=== PATIENT | male | born 1985 | race Caucasian/White ===

== ENCOUNTER → 2019-03-31 | Outpatient (CLI) | payer OTHER ==
--- NOTE | 2019-03-31 09:51 | XR ---
EXAMINATION TYPE: XR hand complete RT DATE OF EXAM: 03/31/2019 CLINICAL HISTORY: pain TECHNIQUE: Frontal, lateral and oblique images of the right hand are obtained. COMPARISON: None. FINDINGS: There is no acute fracture/dislocation evident. The joint spaces appear within normal limi ts. The overlying soft tissue appears unremarkable. IMPRESSION: There is no acute fracture or dislocation ICD 10 NO FRACTURE, INITIAL EVALUATION
--- NOTE | 2019-03-31 09:52 | XR ---
EXAMINATION TYPE: XR forearm RT DATE OF EXAM: 03/31/2019 CLINICAL HISTORY: pain TECHNIQUE: Frontal and lateral images of the right forearm are obtained. COMPARISON: None. FINDINGS: There is no acute fracture/dislocation evident. There is ununited fracture chronic in natu re involving the medial humeral condyle. The joint spaces appear within normal limits. The overlying soft tissue appears unremarkable. IMPRESSION: There is no acute fracture or dislocation. ICD 10 NO FRACTURE, INITIAL EVALUATION
== END ==
LOC: RADXRMAIN 09:13
PROVIDERS: ATTEND Emergency Medicine
DX: S50.11XA Contusion of right forearm, initial encounter (principal); S60.221A Contusion of right hand, initial encounter

== ENCOUNTER 2023-05-09 20:49 | Emergency (ER) | payer OTHER ==
[2023-05-09 20:54] VITALS: BP 133/77; PULSE 93; RESP 20; TEMP 98
[2023-05-09] MEDS ORDERED: FAMOTIDINE 20 MG TAB PO STA (21:12)
[2023-05-09] MEDS ORDERED: hydrOXYzine HCL 50 MG/ML 1 ML VIAL IM STA (21:12)
--- NOTE | 2023-05-09 21:29 | ED ---
General Adult HPI - General Chief complaint: Allergic Reaction Stated complaint: Red bumps all over Time Seen by Provider: 05/09/23 20:55 Source: patient, RN notes reviewed Mode of arrival: ambulatory Limitations: no limitations - History of Present Illness Initial comments: 38-year-old male resents to the emergency department chief complaint of rash th at started yesterday. He went to urgent care at that time and was given a single dose of steroids, Benadryl. He states that it started on his forearms and has progressed to his chest and back. He reports that it is very itchy. He has applied calamine lotion which does not help. He has also tried oatmeal baths which helps for the time being. He reports following this the rash is continuing to worsen. He is unaware of any new exposures. He denies any new medications, soaps, detergents. Denies any difficulty breathing, shortness of breath, swelling of his lips, tongue, nausea, vomiting. - Related Data Home Medications Medication Instructions Recorded Confirmed Dextroamphetamine/Amphetamine 25 mg PO DAILY 12/03/15 12/03/15 [Adderall] Oseltamivir Phosphate [Tamiflu] 30 mg PO DAILY 12/03/15 12/03/15 Previous Rx's Medication Instructions Recorded Albuterol Inhaler [Ventolin Hfa 1 - 2 puff INHALATION Q6HR #1 12/03/15 Inhaler] inhaler Azithromycin [Zithromax Z-pack (6 0 mg PO DIRECTED #1 pack 12/03/15 tabs)] Naproxen [Naprosyn] 500 mg PO Q12HR #60 tab 12/03/15 Famotidine 40 mg PO DAILY #7 tablet 05/09/23 diphenhydrAMINE & Zinc Cream 1 applic TOPICAL BID #28 gm 05/09/23 [Benadryl Cream] diphenhydrAMINE [Benadryl] 25 mg PO QID PRN #20 capsule 05/09/23 predniSONE [Deltasone] 40 mg PO DAILY #10 tab 05/09/23 Allergies Allergy/AdvReac Type Severity Reaction Status Date / Time No Known Allergies Allergy Verified 12/03/15 00:19 Review of Systems ROS Statement: Those systems with pertinent positive or pertinent negative responses have been documented in the HPI. ROS Other: All systems not noted in ROS Statement are negative. Past Medical History Past Medical History: No Reported History History of Any Multi-Drug Resistant Organisms: None Reported Past Surgical History: No Surgical Hx Reported Past Psychological History: No Psychological Hx Reported, ADD/ADHD Past Alcohol Use History: Occasional Past Drug Use History: None Reported General Exam Limitations: no limitations General appearance: alert, in no apparent distress Head exam: Present: atraumatic, normocephalic, normal inspection Eye exam: Present: normal appearance ENT exam: Present: normal exam, mucous membranes moist Neck exam: Present: normal inspection. Absent: tenderness, meningismus, lymphadenopathy Respiratory exam: Present: normal lung sounds bilaterally. Absent: respiratory distress, wheezes, rales, rhonchi, stridor Cardiovascular Exam: Present: regular rate, normal rhythm, normal heart sounds. Absent: systolic murmur, diastolic murmur, rubs, gallop, clicks GI/Abdominal exam: Present: soft, normal bowel sounds. Absent: distended, tenderness, guarding, rebound, rigid Extremities exam: Present: normal inspection, full ROM, normal capillary refill. Absent: tenderness, pedal edema, joint swelling, calf tenderness Back exam: Present: normal inspection Neurological exam: Present: alert, oriented X3 Psychiatric exam: Present: normal affect, normal mood Skin exam: Present: warm, dry, rash, urticaria Course Vital Signs 05/09/23 20:50 Temperature 98 F Pulse Rate 93 Respiratory 20 Rate Blood Pressure 133/77 O2 Sat by Pulse 98 Oximetry Medical Decision Making - Medical Decision Making Was pt. sent in by a medical professional or institution (STACEY Galo, CHORUS MASTER, urgent care, hospital, or fci...) When possible be specific @ -No Did you speak to anyone other than the patient for history (EMS, parent, family, police, friend...)? What history was obtained from this source @ -No Did you review nursing and triage notes (agree or disagree)? Why? @ -I reviewed and agree with nursing and triage notes Were old charts reviewed (outside hosp., previous admission, EMS record, old EKG, old radiological studies, urgent care reports/EKG's, fci records)? Report findings @ -No old charts were reviewed Differential Diagnosis (chest pain, altered mental status, abdominal pain women, abdominal pain men, vaginal bleeding, weakness, fever, dyspnea, syncope, he adache, dizziness, GI bleed, back pain, seizure, CVA, palpatations, mental health, musculoskeletal)? @ -urticaria, atopic dermatitis, contact dermatitis, this list is not all inc lusive EKG interpreted by me (3pts min.). @ -none X-rays interpreted by me (1pt min.). @ -None done CT interpreted by me (1pt min.). @ -None done U/S interpreted by me (1pt. min.). @ -None done What testing was considered but not performed or refused? (CT, X-rays, U/S, labs)? Why? @ -None What meds were considered but not given or refused? Why? @ -None Did you discuss the management of the patient with other professionals (professionals i.e. , PA, CHORUS MASTER, lab, RT, psych nurse, social worker psychiatric, reading assistant, teacher, chief digital officer, dependency case manager)? Give summary @ -No Was smoking cessation discussed for >3mins.? @ -No Was critical care preformed (if so, how long)? @ -No Were there social determinants of health that impacted care today? How? (Homelessness, low income, unemployed, alcoholism, drug addiction, transportation, low edu. Level, literacy, decrease access to med. care, prison, rehab)? @ -No Was there de-escalation of care discussed even if they declined (Discuss DNR or withdrawal of care, Hospice)? DNR status @ -No What co-morbidities impacted this encounter? (DM, HTN, Smoking, COPD, CAD, Cancer, CVA, ARF, Chemo, Hep., AIDS, mental health diagnosis, sleep apnea, morbid obesity)? @ -None Was patient admitted / discharged? Hospital course, mention meds given and route, prescriptions, significant lab abnormalities, going to OR and other pertinent info. @ -Discharge. Patient is in the emergency department chief complaint of rash that started yesterday. He reports it is pruritic. He went to urgent care yesterday and was given a dose of Benadryl, a dose of steroids that he is unsure of the name of. He was not sent a prescription for any steroids. The rash appears urticarial in nature. Patient has been hearing seen this rash since last night and is at low risk for progression. Is not having any difficulty breathing, no wheezing. Lungs clear to auscultation. Patient given a dose of Pepcid and I am hydroxyzine to help with the itching. Prescription was in the patient's pharmacy for prednisone 40 mg for 5 days, Benadryl, Pepcid. He is advised to take his medicines as prescribed and to return to the emergency department for new symptoms. Patient stable at time of discharge. Case discussed with my attending, Dr. Theodore. Undiagnosed new problem with uncertain prognosis? @ -No Drug Therapy requiring intensive monitoring for toxicity (Heparin, Nitro, Insulin, Cardizem)? @ -No Were any procedures done? @ -No Diagnosis/symptom? @ -urticaria Acute, or Chronic, or Acute on Chronic? @ -acute Uncomplicated (without systemic symptoms) or Complicated (systemic symptoms)? @ -uncomplicated Side effects of treatment? @ -No Exacerbation, Progression, or Severe Exacerbation? @ -No Poses a threat to life or bodily function? How? (Chest pain, [place], PR, pneumonia, PE, COPD, DKA, ARF, appy, cholecystitis, CVA, Diverticulitis, Homicidal, Suicidal, threat to staff... and all critical care pts) @ -No Disposition Clinical Impression: Allergic reaction Disposition: HOME SELF-CARE Condition: Stable Instructions (If sedation given, give patient instructions): General Allergic Reaction (ED) Additional Instructions: Please pickup your medications from the pharmacy and take as directed. Follow up with your primary care provider. Return to the emergency department for new or worsening symptoms. Prescriptions: diphenhydrAMINE [Benadryl] 25 mg PO QID PRN #20 capsule PRN Reason: Itching diphenhydrAMINE & Zinc Cream [Benadryl Cream] 1 applic TOPICAL BID #28 gm predniSONE [Deltasone] 40 mg PO DAILY #10 tab Famotidine 40 mg PO DAILY #7 tablet Is patient prescribed a controlled substance at d/c from ED?: No Referrals: Jayden Gibbs MD [Primary Care Provider] - 1-2 days
== END 2023-05-09 21:40 | disposition home or self-care (01) ==
LOC: EC 20:49
DX: R21 Rash and other nonspecific skin eruption (principal); T45.0X5A Adverse effect of antiallergic and antiemetic drugs, initial encounter
CPT/HCPCS: 99283; 96372; J3410

== ENCOUNTER 2023-08-27 23:18 | Emergency (ER) | payer OTHER ==
[2023-08-27 23:43] VITALS: TEMP 98.1
--- NOTE | 2023-08-28 02:44 | XR ---
EXAM: XR Soft Tissue Neck CLINICAL HISTORY: XR Reason: throat pain, FB sensation TECHNIQUE: Frontal and lateral views of the soft tissues of the neck. COMPARISON: No relevant prior studies available. FINDINGS: Airway: Unremarkable. No abnormal narrowing. Bones/joints: Unremarkable. No acute fracture. Soft tissues: Unremarkable. No abnormal soft tissue prominence. Normal epiglottis. IMPRESSION: Normal neck x-rays.
[2023-08-28] MEDS ORDERED: DEXAMETHASONE SOD PHOSPHATE 10 MG/ML 1 ML VIAL IM STA (02:58)
--- NOTE | 2023-08-28 02:58 | ED ---
ENT HPI - General Chief complaint: ENT Stated complaint: Throat pain Time Seen by Provider: 08/28/23 00:05 Source: patient Mode of arrival: ambulatory Limitations: no limitations - History of Present Illness Initial comments: 38-year-old male presenting with chief complaint of sore throat. Sore throat has been ongoing for several days. Patient states that it feels like there is something stuck in his throat. Patient has been eating and drinking normally. He is having no difficulty breathing or swallowing. No fevers or chills. No voice changes. No drooling. No nausea or vomiting. - Related Data Home Medications Medication Instructions Recorded Confirmed Dextroamphetamine/Amphetamine 25 mg PO DAILY 12/03/15 12/03/15 [Adderall] Oseltamivir Phosphate [Tamiflu] 30 mg PO DAILY 12/03/15 12/03/15 Previous Rx's Medication Instructions Recorded Albuterol Inhaler [Ventolin Hfa 1 - 2 puff INHALATION Q6HR #1 12/03/15 Inhaler] inhaler Azithromycin [Zithromax Z-pack (6 0 mg PO DIRECTED #1 pack 12/03/15 tabs)] Naproxen [Naprosyn] 500 mg PO Q12HR #60 tab 12/03/15 Famotidine 40 mg PO DAILY #7 tablet 05/09/23 diphenhydrAMINE & Zinc Cream 1 applic TOPICAL BID #28 gm 05/09/23 [Benadryl Cream] diphenhydrAMINE [Benadryl] 25 mg PO QID PRN #20 capsule 05/09/23 predniSONE [Deltasone] 40 mg PO DAILY #10 tab 05/09/23 Allergies Allergy/AdvReac Type Severity Reaction Status Date / Time No Known Allergies Allergy Verified 08/27/23 23:34 Review of Systems ROS Statement: Those systems with pertinent positive or pertinent negative responses have been documented in the HPI. ROS Other: All systems not noted in ROS Statement are negative. Past Medical History Past Medical History: No Reported History History of Any Multi-Drug Resistant Organisms: None Reported Past Surgical History: No Surgical Hx Reported Past Psychological History: No Psychological Hx Reported, ADD/ADHD Smoking Status: Never smoker Past Alcohol Use History: Occasional Past Drug Use History: None Reported General Exam Limitations: no limitations General appearance: alert, in no apparent distress Head exam: Present: atraumatic, normocephalic, normal inspection Eye exam: Present: normal appearance, EOMI Expanded Mouth exam: Present: normal external inspection, tongue normal. Absent: drooling, trismus, muffled voice Throat exam: normal inspection. negative: R peritonsillar mass, L peritonsillar mass Neck exam: Present: normal inspection, full ROM Respiratory exam: Absent: respiratory distress Neurological exam: Present: alert, oriented X3 Psychiatric exam: Present: normal affect, normal mood Skin exam: Present: warm, dry, intact, normal color. Absent: rash Course Vital Signs 08/27/23 08/28/23 23:29 03:13 Temperature 98.1 F Pulse Rate 79 75 Respiratory 17 18 Rate Blood Pressure 116/75 136/82 O2 Sat by Pulse 95 98 Oximetry Medical Decision Making - Medical Decision Making Was pt. sent in by a medical professional or institution (Dr. PA, EDI PROGRAMMER ANALYST, urgent care, hospital, or assisted...) When possible be specific @ -No Did you speak to anyone other than the patient for history (EMS, parent, family, police, friend...)? What history was obtained from this source @ -No Did you review nursing and triage notes (agree or disagree)? Why? @ -I reviewed and agree with nursing and triage notes Were old charts reviewed (outside hosp., previous admission, EMS record, old EKG, old radiological studies, urgent care reports/EKG's, assisted records)? Report findings @ -No old charts were reviewed Differential Diagnosis (chest pain, altered mental status, abdominal pain women, abdominal pain men, vaginal bleeding, weakness, fever, dyspnea, syncope, headache, dizziness, GI bleed, back pain, seizure, CVA, palpatations, mental health, musculoskeletal)? @ -Differential includes pharyngitis, foreign body, epiglottitis, peritonsillar abscess, malignancy, this is not an all inclusive list EKG interpreted by me (3pts min.). @ -As above X-rays interpreted by me (1pt min.). @ -Soft tissue neck x-ray shows no acute process CT interpreted by me (1pt min.). @ -None done U/S interpreted by me (1pt. min.). @ -None done What testing was considered but not performed or refused? (CT, X-rays, U/S, labs)? Why? @ -None What meds were considered but not given or refused? Why? @ -None Did you discuss the management of the patient with other professionals (professionals i.e. , PA, EDI PROGRAMMER ANALYST, lab, RT, psych nurse, social service liaison, pole incisor operator, teacher, general service officer, case management manager)? Give summary @ -No Was smoking cessation discussed for >3mins.? @ -No Was critical care preformed (if so, how long)? @ -No Were there social determinants of health that impacted care today? How? (Homelessness, low income, unemployed, alcoholism, drug addiction, transportation, low edu. Level, literacy, decrease access to med. care, group home, rehab)? @ -No Was there de-escalation of care discussed even if they declined (Discuss DNR or withdrawal of care, Hospice)? DNR status @ -No What co-morbidities impacted this encounter? (DM, HTN, Smoking, COPD, CAD, Cancer, CVA, ARF, Chemo, Hep., AIDS, mental health diagnosis, sleep apnea, morbid obesity)? @ -None Was patient admitted / discharged? Hospital course, mention meds given and route, prescriptions, significant lab abnormalities, going to OR and other pertinent info. @ -38-year-old male presenting with chief complaint of sore throat. Symptoms have been ongoing for several days. History and physical exam is conducted. Immediately following patient asks for something to eat and drink. He is negative for group A strep. Negative soft tissue neck x-ray. He is showing no signs of respiratory distress, no drooling or trismus, no hot potato voice. On exam there is no midline shift or evidence of peritonsillar mass. No fevers or vomiting. Patient was given a dose of Decadron. Educated on supportive management and alarm symptoms that should prompt reevaluation. Follow-up with PCP. Report back to ER with any new or worsening symptoms. Discussed return parameters and answered all questions. Patient conveyed verbal understanding and agreed to the plan. I discussed this case in detail with my attending Dr. Bui Undiagnosed new problem with uncertain prognosis? @ -No Drug Therapy requiring intensive monitoring for toxicity (Heparin, Nitro, Insulin, Cardizem)? @ -No Were any procedures done? @ -No Diagnosis/symptom? @ -Pharyngitis Acute, or Chronic, or Acute on Chronic? @ -Acute Uncomplicated (without systemic symptoms) or Complicated (systemic symptoms)? @ -Uncomplicated Side effects of treatment? @ -No Exacerbation, Progression, or Severe Exacerbation? @ -No - Lab Data Lab Results 08/27/23 Range/Units 23:35 Group A Strep (PCR) NOT DETECTED (Not Detectd) Disposition Clinical Impression: Acute viral pharyngitis Disposition: HOME SELF-CARE Condition: Good Instructions (If sedation given, give patient instructions): Pharyngitis (ED) Additional Instructions: Follow-up with PCP. Report back to ER with any new or worsening symptoms. Is patient prescribed a controlled substance at d/c from ED?: No Referrals: Jayden Gibbs MD [Primary Care Provider] - 1-2 days Time of Disposition: 02:58
[2023-08-28 03:38] VITALS: BP 136/82; PULSE 75; RESP 18
== END 2023-08-28 03:14 | disposition home or self-care (01) ==
LOC: EC 23:18
DX: J02.8 Acute pharyngitis due to other specified organisms (principal)
CPT/HCPCS: 87651; 70360; 99283; 96372; J1100

== ENCOUNTER 2023-08-29 13:23 | Emergency (ER) | payer BC, OTHER ==
[2023-08-29 13:45] VITALS: TEMP 98.4
--- NOTE | 2023-08-29 13:58 | ED ---
ENT HPI <Darrell Lau Noy - Last Filed: 08/29/23 18:38> - General Source: patient, RN notes reviewed Mode of arrival: ambulatory Limitations: no limitations <Emilia Todd - Last Filed: 08/29/23 19:38> - General Chief complaint: ENT Stated complaint: throat pain Time Seen by Provider: 08/29/23 13:58 - History of Present Illness Initial comments: 38-year-old male presented ER with chief complaint of sore throat and difficulty swallowing/breathing. Patient was seen here on Wednesday with similar complaint and he received a steroid. He reports that it has only gotten worse. Patient states he is now having difficulty talking and swallowing. He states he's been having to spit into a bucket because he is unable to handle his secretions. He denies any fevers, chills, night sweats, recent URIs, dental infections, chest pain, shortness of breath. (Emilia Todd) - Related Data Home Medications Medication Instructions Recorded Confirmed Dextroamphetamine/Amphetamine 25 mg PO DAILY 12/03/15 12/03/15 [Adderall] Oseltamivir Phosphate [Tamiflu] 30 mg PO DAILY 12/03/15 12/03/15 Previous Rx's Medication Instructions Recorded Albuterol Inhaler [Ventolin Hfa 1 - 2 puff INHALATION Q6HR #1 12/03/15 Inhaler] inhaler Azithromycin [Zithromax Z-pack (6 0 mg PO DIRECTED #1 pack 12/03/15 tabs)] Naproxen [Naprosyn] 500 mg PO Q12HR #60 tab 12/03/15 Famotidine 40 mg PO DAILY #7 tablet 05/09/23 diphenhydrAMINE & Zinc Cream 1 applic TOPICAL BID #28 gm 05/09/23 [Benadryl Cream] diphenhydrAMINE [Benadryl] 25 mg PO QID PRN #20 capsule 05/09/23 predniSONE [Deltasone] 40 mg PO DAILY #10 tab 05/09/23 Amoxic-Pot Clav 875-125Mg 1 tab PO Q12HR #20 tab 08/29/23 [Augmentin 875-125] Amoxic-Pot Clav 875-125Mg 1 tab PO Q12HR 10 Days #20 tab 11/26/23 [Augmentin 875-125] dexAMETHasone [Decadron] 0 mg PO DIRECTED #12 tab 08/29/23 dexAMETHasone [Decadron] 0.75 mg PO DAILY #12 tab 08/29/23 Allergies Allergy/AdvReac Type Severity Reaction Status Date / Time No Known Allergies Allergy Verified 08/29/23 13:34 Review of Systems ROS Other: All systems not noted in ROS Statement are negative. <Darrell Lau - Last Filed: 08/29/23 18:38> ROS Other: All systems not noted in ROS Statement are negative. <Emilia Todd - Last Filed: 08/29/23 19:38> ROS Statement: Those systems with pertinent positive or pertinent negative responses have been documented in the HPI. Past Medical History Past Medical History: No Reported History History of Any Multi-Drug Resistant Organisms: None Reported Past Surgical History: No Surgical Hx Reported Past Psychological History: No Psychological Hx Reported, ADD/ADHD Smoking Status: Never smoker Past Alcohol Use History: Occasional Past Drug Use History: None Reported <Emilia Todd - Last Filed: 08/29/23 19:38> General Exam Limitations: no limitations General appearance: alert, in no apparent distress Head exam: Present: atraumatic, normocephalic, normal inspection Eye exam: Present: normal appearance, PERRL, EOMI. Absent: scleral icterus, conjunctival injection, periorbital swelling ENT exam: Present: TM's normal bilaterally, other (Limited mouth exam due to patient unable to open his mouth due to pain.) Neck exam: Present: tenderness (Tenderness superior to hyoid bone) Respiratory exam: Present: normal lung sounds bilaterally. Absent: respiratory distress, wheezes, rales, rhonchi, stridor Cardiovascular Exam: Present: regular rate, normal rhythm, normal heart sounds. Absent: systolic murmur, diastolic murmur, rubs, gallop, clicks Neurological exam: Present: alert, oriented X3, CN II-XII intact Psychiatric exam: Present: normal affect, normal mood <Emilia Todd - Last Filed: 08/29/23 19:38> Course <Darrell Lau - Last Filed: 08/29/23 18:38> Vital Signs 08/29/23 13:32 Temperature 98.4 F Pulse Rate 85 Respiratory 20 Rate Blood Pressure 115/75 O2 Sat by Pulse 99 Oximetry - Reevaluation(s) Reevaluation #1: 08/29/23 18:[address] Christopher who does recommend Augmentin twice daily for 10 days and Decadron taper. Patient will start this medication tomorrow and follow-up as an outpatient. (Darrell Lau) Procedures - Incision & Drainage Consent Obtained: verbal consent Indication: Peritonsillar abscess Site: oral Amount (mLs): 2 Sterile Field Used?: No Ultrasound used: No Needle Aspiration Performed?: Yes Irrigation Performed?: No I&D Drainage Obtained: Blood Insertion of drain: No Culture Obtained?: No Complications: other (No purulent fluid obtained) Patient Tolerated Procedure: well <Darrell Lau - Last Filed: 08/29/23 18:38> Medical Decision Making - Lab Data Result diagrams: 08/29/23 16:23 08/29/23 16:23 <Darrell Lau - Last Filed: 08/29/23 18:38> - Lab Data Result diagrams: 08/29/23 16:23 08/29/23 16:23 - Radiology Data Radiology results: report reviewed, image reviewed <Emilia Todd - Last Filed: 08/29/23 19:38> - Medical Decision Making Was pt. sent in by a medical professional or institution (STACE[facility] Galo, FORGING ROLL OPERATOR, urgent care, hospital, or senior living...) When possible be specific @ -No Did you speak to anyone other than the patient for history (EMS, parent, family, police, friend...)? What history was obtained from this source @ -No Did you review nursing and triage notes (agree or disagree)? Why? @ -I reviewed and agree with nursing and triage notes Were old charts reviewed (outside hosp., previous admission, EMS record, old EKG, old radiological studies, urgent care reports/EKG's, senior living records)? Report findings @ -Yes I reviewed old charts from 08/27/23. Patient was swabbed for strep which was negative and neck x-ray was negative. Patient received a dose of Decadron and was discharged. Differential Diagnosis (chest pain, altered mental status, abdominal pain women, abdominal pain men, vaginal bleeding, weakness, fever, dyspnea, syncope, headache, dizziness, GI bleed, back pain, seizure, CVA, palpatations, mental health, musculoskeletal)? @ -Differential Fever: Pneumonia, viral URI, endocarditis, myocarditis, pericarditis, otitis, sinusitis, peritonsillar Abscess, retropharyngeal Abscess, epiglottitis, peritonitis, appendicitis, Lupe cystitis, diverticulitis, hepatitis, colitis, UTI, PID, TOA, pyelonephritis, prostatitis, epididymitis, meningitis, encephalitis, pulmonary embolism, CVA, thyroid storm, pancreatitis, adrenal crisis, cavernous sinus thrombosis, this is not meant to be an all- inclusive list. EKG interpreted by me (3pts min.). @ -None X-rays interpreted by me (1pt min.). @ -None done CT interpreted by me (1pt min.). @ -CT of soft tissue neck showed soft tissue inflammation involving the right palatine tonsils. Findings were consistent with a 1.71.51.3 cm peritonsillar abscess on the right. There is edema of the soft tissues adjacent to the peritonsillar abscess. There was edema of the soft tissues next to the abscess which could represent a developing retropharyngeal effusion. There is multiple mildly enlarged lymph nodes of the right neck. Airway is patent. Polypoid mucosal thickening in the left more than the right maxillary sinus. U/S interpreted by me (1pt. min.). @ -None done What testing was considered but not performed or refused? (CT, X-rays, U/S, labs)? Why? @ -None What meds were considered but not given or refused? Why? @ -None Did you discuss the management of the patient with other professionals (professionals i.e. , PA, FORGING ROLL OPERATOR, lab, RT, psych nurse, dialysis social worker, project engineering manager, teacher, correctional officer chief, egg caser)? Give summary @ -Yes, this case was discussed with Dr. Christopher who advised on outpatient follow-up. He wanted the patient started on Augmentin and decadron. Was smoking cessation discussed for >3mins.? @ -No Was critical care preformed (if so, how long)? @ -No Were there social determinants of health that impacted care today? How? (Homelessness, low income, unemployed, alcoholism, drug addiction, transportation, low edu. Level, literacy, decrease access to med. care, snf, rehab)? @ -No Was there de-escalation of care discussed even if they declined (Discuss DNR or withdrawal of care, Hospice)? DNR status @ -No What co-morbidities impacted this encounter? (DM, HTN, Smoking, COPD, CAD, Cancer, CVA, ARF, Chemo, Hep., AIDS, mental health diagnosis, sleep apnea, morbid obesity)? @ -None Was patient admitted / discharged? Hospital course, mention meds given and route, prescriptions, significant lab abnormalities, going to OR and other pertinent info. @ -Discharge. Patient's vital signs were stable upon examination. Patient was complaining of right-sided throat pain with difficulty swallowing and handling his secretions. He was talking with a hot potato voice as well. Labs obtained in the ER were significant for a white blood cell count of 11.1. CT of soft tissue neck showed soft tissue inflammation involving the right palatine tonsils. Findings were consistent with a 1.71.51.3 cm peritonsillar abscess on the right. There is edema of the soft tissues adjacent to the peritonsillar abscess. There was edema of the soft tissues next to the abscess which could represent a developing retropharyngeal effusion. There is multiple mildly enlarged lymph nodes of the right neck. Airway is patent. Polypoid mucosal thickening in the left more than right maxillary sinus. Patient received PO motrin for pain control in the ER. Prior to attempted I &D of abscess patient was given IV decadron 10 mg and 3g Unasyn. Dr. Lau attempted to drain the abscess which was unsuccessful. Dr. Lau spoke with Dr. Christopher from ENT who advised outpatient follow-up. Patient was started on Augmentin and Decadron and discharge. I discussed at length return parameters with the patient. I advised him to follow-up with ENT in the next 24-48 hours and to return to ER if symptoms worsen. Patient will be discharged in stable condition with follow-up to PCP and ENT. Patient expressed understanding and agreement with care plan. Undiagnosed new problem with uncertain prognosis? @ -No Drug Therapy requiring intensive monitoring for toxicity (Heparin, Nitro, Insulin, Cardizem)? @ -No Were any procedures done? @ -Yes Diagnosis/symptom? @ -Peritonsillar abscess Acute, or Chronic, or Acute on Chronic? @ -Acute Uncomplicated (without systemic symptoms) or Complicated (systemic symptoms)? @ -Complicated Side effects of treatment? @ -No Exacerbation, Progression, or Severe Exacerbation? @ -No Poses a threat to life or bodily function? How? (Chest pain, [place], [place], pneumonia, PE, COPD, DKA, ARF, appy, cholecystitis, CVA, Diverticulitis, Homicidal, Suicidal, threat to staff... and all critical care pts) @ -Possibly (Emilia Todd) - Lab Data Lab Results 08/29/23 08/29/23 08/29/23 Range/Units 16:23 16: 16: WBC 11.1 H (3.8-10.6) k/uL RBC 4.81 (4.30-5.90) m/uL Hgb 14.6 (13.0-17.5) gm/dL Hct 42.4 (39.0-53.0) % MCV 88.1 (80.0-100.0) fL MCH 30.4 (25.0-35.0) pg MCHC 34.4 (31.0-37.0) g/dL RDW 13.1 (11.5-15.5) % Plt Count 193 (150-450) k/uL MPV 8.0 Neutrophils % 70 % Lymphocytes % 20 % Monocytes % 7 % Eosinophils % 1 % Basophils % 0 % Neutrophils # 7.8 H (1.3-7.7) k/uL Lymphocytes # 2.3 (1.0-4.8) k/uL Monocytes # 0.8 (0-1.0) k/uL Eosinophils # 0.1 (0-0.7) k/uL Basophils # 0.0 (0-0.2) k/uL Sodium 139 (137-145) mmol/L Potassium 3.7 (3.5-5.1) mmol/L Chloride 98 (98-107) mmol/L Carbon Dioxide 30 (22-30) mmol/L Anion Gap 11 mmol/L BUN 9 (9-20) mg/dL Creatinine 0.82 (0.66-1.25) mg/dL Est GFR (CKD-EPI)AfAm >90 (>60 ml/min/1.73 sqM) Est GFR (CKD-EPI)NonAf >90 (>60 ml/min/1.73 sqM) Glucose 90 (74-99) mg/dL Plasma Lactic Acid [place] 1.1 (0.7-2.0) mmol/L Calcium 8.9 (8.4-10.2) mg/dL Total Bilirubin 0.4 (0.2-1.3) mg/dL AST 48 (17-59) U/L ALT 69 H (4-49) U/L Alkaline Phosphatase 139 H (38-126) U/L Total Protein 7.1 (6.3-8.2) g/dL Albumin 4.2 (3.5-5.0) g/dL Disposition Is patient prescribed a controlled substance at d/c from ED?: No Time of Disposition: 18:43 <Darrell Lau - Last Filed: 08/29/23 18:38> <Emilia Todd - Last Filed: 08/29/23 19:38> Clinical Impression: Peritonsillar abscess Disposition: HOME SELF-CARE Condition: Good Instructions (If sedation given, give patient instructions): Peritonsillar Abscess (ED) Additional Instructions: Please monitor symptoms closely and return with worsening or changing symptoms. Prescriptions: Amoxic-Pot Clav 875-125Mg [Augmentin 875-125] 1 tab PO Q12HR #20 tab Amoxic-Pot Clav 875-125Mg [Augmentin 875-125] 1 tab PO Q12HR 10 Days #20 tab dexAMETHasone [Decadron] 0 mg PO DIRECTED #12 tab dexAMETHasone [Decadron] 0.75 mg PO DAILY #12 tab Referrals: Jayden Gibbs MD [Primary Care Provider] - 1-2 days Sukumar Christopher MD [STAFF PHYSICIAN] - 1-2 days
[2023-08-29 16:34] LABS: Basophils % (A) 0 %; Eosinophils # (A) 0.1 k/uL (0-0.7); Eosinophils % (A) 1 %; HCT 42.4 % (39.0-53.0); HGB 14.6 gm/dL (13.0-17.5); Lymphocytes # (A) 2.3 k/uL (1.0-4.8); Lymphocytes % (A) 20 %; MCH 30.4 pg (25.0-35.0); MCHC 34.4 g/dL (31.0-37.0); MCV 88.1 fL (80.0-100.0); Monocytes # (A) 0.8 k/uL (0-1.0); Monocytes % (A) 7 %; Neutrophils # (A) 7.8 k/uL (1.3-7.7); Neutrophils % (A) 70 %; Platelet Count 193 k/uL (150-450); RBC 4.81 m/uL (4.30-5.90); RDW 13.1 % (11.5-15.5); WBC 11.1 k/uL (3.8-10.6)
[2023-08-29 16:47] LABS: ALT 69 U/L (4-49); AST 48 U/L (17-59); African American GFR (CKD) >90 (>60 ml/min/1.73 sqM); Albumin 4.2 g/dL (3.5-5.0); Alkaline Phosphatase 139 U/L (38-126); Anion Gap 11 mmol/L; Blood Urea Nitrogen 9 mg/dL (9-20); Calcium 8.9 mg/dL (8.4-10.2); Carbon Dioxide 30 mmol/L (22-30); Chloride 98 mmol/L (98-107); Glucose 90 mg/dL (74-99); Non-African American GFR(CKD) >90 (>60 ml/min/1.73 sqM); Potassium 3.7 mmol/L (3.5-5.1); Sodium 139 mmol/L (137-145); Total Bilirubin 0.4 mg/dL (0.2-1.3); Total Protein 7.1 g/dL (6.3-8.2)
[2023-08-29] MEDS ORDERED: IBUPROFEN 600 MG TAB PO STA (17:40)
--- NOTE | 2023-08-29 17:43 | CT ---
EXAMINATION TYPE: CT soft tissue neck w con CT DLP: 327.1 mGycm, Automated exposure control for dose reduction was used. DATE OF EXAM: 08/29/2023 3:46 PM COMPARISON: Soft tissue neck x-rays 08/28/2023. CLINICAL INDICATION:Male, 38 years old with history of pain; PHH, Sore throat and neck pressure x 4 d ays. TECHNIQUE: Standard enhanced CT of the neck. Axial sections with coronal and sagittal reformats were obtained. Contrast used:100 cc mL of Isovue 300 with IV Contrast, Oral contrast used: none. FINDINGS: Brain: Visualized portions are grossly unremarkable. Orbits: Unremarkable Sinuses: Polypoid mucosal thickening in the left more than right maxillary sinus. Mild nasal septal d eviation to the left. Spaces of the neck: Soft tissue inflammation involving the right more than left palatine tonsils. On the right there is a hypodense fluid collection with irregular surrounding enhancing rim measuring 1. 7 cm craniocaudal, 1.5 cm AP and 1.3 cm transverse consistent with peritonsillar abscess. There is ed mena of the adjacent soft tissues and some vague low attenuation in the right retropharyngeal region w hich could represent developing retropharyngeal effusion. Musculoskeletal: No acute osseous abnormality. Lymph nodes: Multiple nonenlarged and some enlarged nodes are seen within the carotid chains bilatera lly, largest node seen is on the right level 2 measuring 1.7 x 1.2 cm. Vascular structures: Major arteries in the neck and internal jugular veins are patent and nondisplace d. Thoracic Inlet/airway: The airway remains patent, however there is the effacement of the vallecula on the right which appears due to the inflammatory changes. Epiglottis itself does not appear particula rly inflamed. Soft tissues/Thyroid: Thyroid and remainder of the soft tissues are unremarkable. Other: Included lung apices show no infiltrate. IMPRESSION: 1. Soft tissue inflammation involving the right more than left palatine tonsils cystoscopy with tons illitis. 2. Findings consistent with a 1.7 x 1.5 x 1.3 cm peritonsillar abscess on the right. 3. Edema of the soft tissues adjacent to the above, and some vague low attenuation in the right retr opharyngeal region which could represent developing retropharyngeal effusion. 4. Multiple mildly enlarged nodes in the right neck. 5. Airway remains patent, however there is effacement of the vallecula on the right which appears du e to the inflammatory changes. 6. Polypoid mucosal thickening in the left more than right maxillary sinus.
[2023-08-29] MEDS ORDERED: DEXAMETHASONE SOD PHOSPHATE 10 MG/ML 1 ML VIAL IV STA (17:48)
[2023-08-29] MEDS ORDERED: AMPICILLIN-SULBACTAM 3 GM in SODIUM CHLORIDE 0.9% 100 ML IVPB STA (17:48)
[2023-08-29] MEDS ORDERED: LIDOCAINE 1% INJ 10MG/ML (20 ML MDV) SQ ONE (17:49)
[2023-08-29] MEDS ORDERED: BENZOCAINE SPRAY 1 CAN TOPICAL STA (17:49)
[2023-08-29 19:40] VITALS: BP 117/75; PULSE 79; RESP 18
== END 2023-08-29 19:26 | disposition home or self-care (01) ==
LOC: EC 13:23
DX: J36 Peritonsillar abscess (principal); Z86.59 Personal history of other mental and behavioral disorders
CPT/HCPCS: 36415; 80053; 83605; 85025; 70491; 99284; 96365; 96375; 42700; J1100; J2001; J0295; Q9967